=== PATIENT | male | born 1990 | race Caucasian/White ===

== ENCOUNTER 2018-03-08 23:42 | Emergency (ER) | payer SELFPAY ==
[~2018-03-08] VITALS: Ht 172.7 cm; Wt 91.0 kg
[2018-03-08 23:45] VITALS: BP 112/75
== END 2018-03-09 00:21 | disposition left against medical advice (07) ==
LOC: ER 23:42
DX: R55 Syncope and collapse (principal); Z53.21 Procedure and treatment not carried out due to patient leaving prior to being seen by health care provider